=== PATIENT | female | born 1975 | race Caucasian/White ===

== ENCOUNTER 2017-04-06 15:16 | Emergency (ER) | payer OTHER ==
[~2017-04-06] VITALS: Ht 152.4 cm; Wt 68.0 kg
[~2017-04-06 15:16] MED LIST: ACETAMINOPHEN-1 EAC2 PO; AMITRIPTYLINE H50 M2 PO; ASPIR 8181 M1; BENTYL 20 MG TA20 M1; BIRTH CONTROL; CIPROFLOXACIN500 M1 PO; COLACE100 MG PO; HYDROCODON-ACE1 EA11; HYDROCODONE-AP1 EAC6 PO; KLONOPIN1 MG PO; MELATONIN3 MG PO; MELATONIN5 M1 PO; NAPROSYN500 MG PO; NORCO 10-325 T1 EACH PO; NORCO 5-325 TA1 EACH PO; ONDANSETRON HCL4 M2 PO; OXYCODONE HCL 55 MG PO; PERCOCET 5-3251 EACH PO; PERCOCET 7.5-51 EACH PO; PERCOCET PO; PHENERGAN 25 MG25 M1; PHENERGAN 25 MG25 M1 PO; PREDNISONE 20 M20 MG PO; PROTONIX 20 MG20 M1 PO; PROZAC20 MG; PROZAC40 MG PO; SENOKOT-S1 TA2 PO; VALIUM10 MG; VANCOMYCIN HCL250 MG; VISTARIL 25 MG25 M1 PO; [UNRECOGNIZED DRUG - OTHER]
[2017-04-06] MEDS ORDERED: LIALDA1.2 GM PO (15:36)
[2017-04-06] MEDS ORDERED: NEURONTIN 400400 M1 PO (15:37)
[2017-04-06] MEDS ORDERED: CYMBALTA60 MG PO (15:39)
[2017-04-06] MEDS ORDERED: NICOTINE TRANSD14 M1 TRANSDERM (15:40)
[2017-04-06 15:53] LABS: URINE BILIRUBIN NEGATIVE (Negative); URINE BLOOD NEGATIVE (Negative); URINE COLOR YELLOW; URINE GLUCOSE-RANDOM* NEGATIVE (Negative); URINE KETONES NEGATIVE (Negative); URINE NITRITE NEGATIVE (Negative); URINE PROTEIN (DIPSTICK) NEGATIVE (Negative); URINE SPECIFIC GRAVITY 1.015 (1.003-1.035); URINE UROBILINOGEN 0.2 E.U./dl (0.2-1.0)
[2017-04-06 15:56] LABS: ABSOLUTE NEUTROPHILS 2.9 thou/uL (1.4-8.2); BASOPHILS 0.8 % (0.0-2.0); EOSINOPHILS 1.8 % (0.0-3.0); HEMATOCRIT 34.4 % (37.0-47.0); HEMOGLOBIN 11.6 gm/dL (12.0-15.0); LYMPHOCYTES 42.8 % (24.0-44.0); MCH 27.3 pg (26.0-34.0); MCHC 33.5 g/dL (28.0-37.0); MCV 81.4 fL (80.0-100.0); MONOCYTES 6.7 % (1.0-8.0); PLATELET COUNT 207 thou/uL (150-400); POLYS 47.9 % (36.0-66.0); RBC 4.23 mil/uL (4.20-5.00); RDW 14.8 % (10.5-14.5); WBC 6.1 thou/uL (4.0-11.0)
[2017-04-06 15:57] LABS: MANUAL DIFF NO
[2017-04-06 16:08] LABS: CALCIUM 8.5 mg/dL (8.5-10.1); CREATININE 0.7 mg/dL (0.6-1.0); POTASSIUM 3.9 mmol/L (3.5-5.1)
[2017-04-06 16:13] LABS: ALBUMIN 3.7 g/dL (3.4-5.0); TOTAL BILIRUBIN 0.3 mg/dL (<0.1-1.0); TOTAL PROTEIN 6.9 g/dL (6.4-8.2)
[2017-04-06] MEDS ORDERED: NEURONTIN 300300 M1 PO (16:16)
[2017-04-06] MEDS ORDERED: HYDROXYZINE HCL50 MG PO (16:17)
[2017-04-06] MEDS ORDERED: VENLAFAXIN75 MG/1 T1 PO (16:17)
[2017-04-06] MEDS ORDERED: VALIUM5 MG PO (16:18)
[2017-04-06] MEDS ORDERED: HYDROCODONE-AP1 EAC6 PO (16:58)
[2017-04-06] MEDS ORDERED: PROMS25 WY RECTAL (16:58)
[2017-04-06] MEDS ORDERED: ONDANSETRON HCL4 M2 PO (23:14)
== END 2017-04-06 19:22 | disposition home or self-care (01) ==
LOC: ER 15:16
PROVIDERS: Nurse Practitioner Family
DX: K50.90 Crohn's disease, unspecified, without complications (principal); F17.210 Nicotine dependence, cigarettes, uncomplicated; Z90.89 Acquired absence of other organs; Z90.710 Acquired absence of both cervix and uterus; Z90.49 Acquired absence of other specified parts of digestive tract; Z88.1 Allergy status to other antibiotic agents; Z88.0 Allergy status to penicillin

== ENCOUNTER 2017-04-06 18:08 | Inpatient (IN) | payer OTHER ==
[~2017-04-06] VITALS: Ht 152.4 cm; Wt 69.2 kg
--- NOTE | ~2017-04-06 | EKG ---
[address] [address] ELECTROCARDIOGRAM REPORT Name: LUZ ARAMBULA Room #: 438-P ADM IN M.R.#: [id number] Admission: 04/06/17 Attend Phys: Arelis Wood MD Discharge: Date of : 79 Report #: [id number] THIS REPORT FOR: //name// [facility] ED Test Date: 2017-04-06 Test Time: 18:41:07 Pat Name: LUZ ARAMBULA Department: Room: [facility] Gender: F Dolly Driver: DMITRI : 1975 Requested By: Rachel Warner Order Number: [id number] MD: Mata Wooten Measurements Intervals [place] Rate: 94 P: 75 PA: 157 QRS: 15 QRSD: 96 T: 70 QT: 371 QTc: 464 Interpretive Statements Sinus rhythm RSR' in V1 or V2, right VCD or RVH Compared to ECG 09/30/2014 09:03:06 Right ventricular hypertrophy now present RSR' in V1 or V2 now present Prolonged QT interval no longer present Electronically Signed On 04-10-2017 8:20:29 CDT by Mata Wooten [email or web address] <ELECTRONICALLY SIGNED> By: Mata Wooten MD 04/10/17 0820 184 184 Mata Wooten MD /EPI
--- NOTE | ~2017-04-06 | D ---
[facility] [place] [address] DISCHARGE SUMMARY Name: LUZ ARAMBULA Room #: 438-P [facility] IN M.R.#: [id number] Admission: 04/06/17 Attend Phys: Arelis Wood MD Discharge: 04/11/17 Date of : 79 Report #: [id number] THIS REPORT FOR: //name// CC: [facility] physician/PCP Arelis Wood DISCHARGE DIAGNOSES: 1. Abdominal pain, suspect chronic pain issues, doubt Crohn's exacerbation. 2. Reported history of Crohn's. 3. Anxiety. 4. Tobacco abuse. CONSULTS: GI. PROCEDURES: None. HOSPITAL COURSE: The patient is a 41-year-old female with a reported history of Crohn's disorder followed by Dr. Booker at [place] presented to the ER secondary to abdominal pain. Please see details of admission dictated by Safia Bartlett on April 06. The patient indicates that she had extensive evaluation at [place] in addition to colonoscopy on March 13. She was started on Lialda, did a month of steroids. She also had an EGD that showed gastritis. She had MRCP that was negative. She came into the ER reporting abdominal pain. She was initially treated for Crohn's exacerbation and GI were consulted. She stays on antiemetics, pain control, IV steroids. After several days of IV steroids, she indicates the pain was not any better. She had a CAT scan that was negative for anything acute. ESR, CRP were negative. UA was negative. Her white count was normal. She never had any fevers. She never had any evidence of nausea, vomiting, bloody stools. It is suspected that there is some concern for drug seeking behavior. Nurses indicate that she would watch the clock and request her meds every 2 hours. She also requested increasing her meds with me. On discharge, she is tolerating diet. Nurses report no other problems. I recommended that she follow up with GI doctor at [place] for any additional management care. DISCHARGE DISPOSITION: To home. DISCHARGE PHYSICAL EXAMINATION: VITAL SIGNS: Temperature 97, pulse 78, blood pressure 132/82, O2 sat 98% on room air. GENERAL: She is awake, alert, answering questions appropriately in no acute respiratory distress. HEENT: Normocephalic, atraumatic. Pupils equal. NECK: Supple. CARDIOVASCULAR: Regular rate and rhythm. No murmurs. LUNGS: Clear to auscultation bilaterally. No crackles or wheeze. ABDOMEN: Soft, no distention or tenderness. [facility] [address] [place] [address] DISCHARGE SUMMARY Name: LUZ ARAMBULA Room #: 438-P [facility]#: [id number] Admission: 04/06/17 Attend Phys: Arelis Wood MD Discharge: 04/11/17 Date of : 79 Report #: [id number] EXTREMITIES: No edema. NEUROLOGIC: Nonfocal. DISCHARGE MEDICATIONS: She will resume all of her previous meds including Phenergan p.r.n., Lialda 1.2 grams 4 tablets daily, Cymbalta 60 daily, Nicoderm patch, gabapentin 300 q.i.d., hydroxyzine p.r.n., Effexor 75 daily, Valium p.r.n., Zofran p.r.n., 20 daily, prednisone taper. CBC and CMP in 1 week. DISCHARGE INSTRUCTIONS: Follow up with primary care in 1 week. Follow up with GI in 1 week and to seek immediate medical attention if symptoms worsen or recur or if she has any significant medical concerns. Discharge planning took 45 minutes. By: 1204 [id number] Cheyenne Wood MD /nt
--- NOTE | ~2017-04-06 | H ---
[facility] [place] [address] HISTORY AND PHYSICAL Name: LUZ ARAMBULA Room #: 438-P [facility] IN M.R.#: [id number] Admission: 04/06/17 Attend Phys: Arelis Wood MD Discharge: 04/11/17 Date of : 79 Report #: [id number] THIS REPORT FOR: //name// CC: [facility] physician/PCP Arelis Wood DATE OF SERVICE: 04/06/2017 ATTENDING PHYSICIAN: Dr. Doyle. PRIMARY CARE PHYSICIAN: None. CHIEF COMPLAINT: Abdominal pain and diarrhea. HISTORY OF PRESENT ILLNESS: The patient is a 41-year-old female who states that for the last year, she has been having severe right upper quadrant abdominal pain associated with episodes of nausea, vomiting and diarrhea. She has also had hematochezia multiple times. She has had an extensive evaluation with GI physician, Dr. Booker at [place]. She has undergone colonoscopy in 02/2017 which she says did show that she had Crohn's disease. She has since been started on Lialda and she did a month of oral steroids. She has also undergone an EGD with report showing gastritis. She states the biopsies are pending. She has also had an MRCP, which was negative. She initially came into the ER complaining of severe right upper quadrant abdominal pain. She said this was very typical for where her Crohn's flares have been. She is not convinced that her symptoms are completely due to Crohn's disease and she would like to see another GI physician to see if there is any other tests that can be done to find out why she is having so much pain. Her pain stays mostly on the right side, but does radiate at times up into her entire right side of her chest and right shoulder area. Her pain is not always related to eating or drinking. She has not been having any fevers. She did receive some pain medications in the ER, but says it really is not working. PAST MEDICAL HISTORY: Crohn's disease, anxiety. PAST SURGICAL HISTORY: Cholecystectomy, hysterectomy, appendectomy, oophorectomy, tonsillectomy and adenoidectomy, ear tubes as a child and bilateral tubal ligation. ALLERGIES: CEPHALOSPORINS, PENICILLIN, both cause rashes; REGLAN causes anxiety and jitteriness and TORADOL causes anxiety. HOME MEDICATIONS: Phenergan 25 mg p.o. or rectal q.4 hours p.r.n., nicotine patch 14 mg transdermal daily, Neurontin 300 mg p.o. q.i.d., Cymbalta 60 mg p.o. daily, Effexor 75 mg p.o. daily, diazepam 5 mg p.o. q.i.d. and hydroxyzine 50 mg p.o. q. 4 hours p.r.n. and Lialda 1.2 g which she takes 4 tabs p.o. daily. [address] [address] HISTORY AND PHYSICAL Name: LUZ ARAMBULA Room #: 438-P [facility] IN M.R.#: [id number] Admission: 04/06/17 Attend Phys: Arelis Wood MD Discharge: 04/11/17 Date of : 79 Report #: [id number] SOCIAL HISTORY: The patient smokes about 5 cigarettes per day. She has been smoking more than that for up to 20 years. She denies any alcohol or drug use. She currently lives with her mother. FAMILY HISTORY: Significant for leukemia. Her father in his sleep at the age of 65. She says they really do not know exactly what happened and mother is alive and healthy and she also has a grandmother who is 97 years old and healthy. REVIEW OF SYSTEMS: Twelve point review of systems was reviewed with the patient, otherwise negative unless stated in the HPI. PHYSICAL EXAMINATION: GENERAL: The patient is an alert female in no acute distress. VITAL SIGNS: Temperature is 36.4, heart rate 98, respirations 18, blood pressure is 121/75, oxygen is 95% on room air. HEENT: PERRLA. Sclerae are nonicteric. Her eyes appear kind of sunken. Oral mucosa is pink and dry. NECK: Supple, no JVD noted. CARDIOVASCULAR: Normal S1, S2. No murmurs, rubs or gallops. RESPIRATORY: Breath sounds are clear bilaterally. No wheezing or rhonchi. ABDOMEN: Nondistended. She does have severe right upper quadrant abdominal pain even to light palpitation. Bowel sounds are positive. VASCULAR: Pedal pulses are 2+ and no edema noted. NEUROLOGIC: The patient is alert and oriented x 3. Speech is clear. She is moving all extremities equally. No focal neuro deficits noted. LABORATORY DATA AND DIAGNOSTICS: WBC is 6.1, hemoglobin 11.6, platelets 207. Sodium 138, potassium 3.9, BUN 9, creatinine 0.7, glucose 98. LFTs are within normal limits. Lipase is 362. UA is negative. Chest x-ray is negative. Ultrasound of the abdomen showed an ectatic common bile duct, this might be normal post cholecystectomy that should be correlated with labs and presentation. ASSESSMENT AND PLAN: 1. Abdominal pain. This is likely due to Crohn's which was a recent diagnosis. She has had extensive gastrointestinal workup done outpatient. She is requesting to see another gastrointestinal physician. We will defer starting any IV steroids to Gastroenterology. Continue with Lialda and IV fluids and pain control. 2. Anxiety, this is stable, continue home medications. 3. Tobacco abuse. The patient has been advised to quit. 4. Deep venous thrombosis prophylaxis, place sequential compression devices. [facility] [address] [place] [address] HISTORY AND PHYSICAL Name: RALFLUZ Darien Room #: 438-P [facility] IN ..#: [id number] Admission: 04/06/17 Attend Phys: Arelis Wood MD Discharge: 04/11/17 Date of : 79 Report #: [id number] We will continue to follow the patient closely throughout the hospitalization and make changes based on clinical status. <ELECTRONICALLY SIGNED> By: LACEY Chin 04/13/17 0109 0556 0725 LACEY Chin /nt
[~2017-04-06 18:08] MED LIST changes: +CYMBALTA60 MG PO; +HYDROXYZINE HCL50 MG PO; +LIALDA1.2 GM PO; +NEURONTIN 300300 M1 PO; +NEURONTIN 400400 M1 PO; +NICOTINE TRANSD14 M1 TRANSDERM; +PROMS25 WY RECTAL; +VALIUM5 MG PO; +VENLAFAXIN75 MG/1 T1 PO
[2017-04-06 18:10] VITALS: BP 121/75
[2017-04-06 20:24] VITALS: BP 113/66
[2017-04-06 22:13] VITALS: BP 115/81
[2017-04-06] MEDS ORDERED: ONDANSETRON HCL4 M2 PO (23:14)
[2017-04-07 04:19] VITALS: BP 122/76
[2017-04-07 08:00] VITALS: BP 120/83
[2017-04-07 15:47] VITALS: BP 113/78
[2017-04-07 19:49] VITALS: BP 118/86
[2017-04-08 04:17] VITALS: BP 127/80
[2017-04-08 08:00] VITALS: BP 108/59; BP 110/65
[2017-04-08 15:28] VITALS: BP 121/65
[2017-04-08 20:22] VITALS: BP 117/68
[2017-04-09 04:03] VITALS: BP 139/85
[2017-04-09 06:10] LABS: ALBUMIN 3.8 g/dL (3.4-5.0); CALCIUM 8.5 mg/dL (8.5-10.1); CREATININE 0.8 mg/dL (0.6-1.0); POTASSIUM 4.2 mmol/L (3.5-5.1); TOTAL BILIRUBIN 0.2 mg/dL (<0.1-1.0)
[2017-04-09 08:00] VITALS: BP 118/60
[2017-04-09 16:00] VITALS: BP 111/69
[2017-04-09 19:05] VITALS: BP 130/83
[2017-04-10 06:10] LABS: HEMATOCRIT 32.7 % (37.0-47.0); MCH 27.7 pg (26.0-34.0); MCHC 33.7 g/dL (28.0-37.0); MCV 82.3 fL (80.0-100.0); RBC 3.97 mil/uL (4.20-5.00); RDW 15.3 % (10.5-14.5); WBC 9.4 thou/uL (4.0-11.0)
[2017-04-10 06:25] LABS: ALBUMIN 3.4 g/dL (3.4-5.0); CALCIUM 8.3 mg/dL (8.5-10.1); CREATININE 0.9 mg/dL (0.6-1.0); TOTAL BILIRUBIN 0.2 mg/dL (<0.1-1.0); TOTAL PROTEIN 6.3 g/dL (6.4-8.2)
[2017-04-10 08:00] VITALS: BP 128/83
[2017-04-10 14:00] LABS: URINE BILIRUBIN NEGATIVE (Negative); URINE BLOOD NEGATIVE (Negative); URINE COLOR YELLOW; URINE GLUCOSE-RANDOM* NEGATIVE (Negative); URINE KETONES NEGATIVE (Negative); URINE LEUKOCYTES-REFLEX NEGATIVE (Negative); URINE PROTEIN (DIPSTICK) NEGATIVE (Negative); URINE SPECIFIC GRAVITY <= 1.005 (1.003-1.035); URINE UROBILINOGEN 0.2 E.U./dl (0.2-1.0)
[2017-04-10 16:00] VITALS: BP 132/86
[2017-04-10 20:05] VITALS: BP 124/74
[2017-04-11 04:25] VITALS: BP 149/95
[2017-04-11 07:16] LABS: HEMATOCRIT 35.8 % (37.0-47.0); HEMOGLOBIN 11.8 gm/dL (12.0-15.0); MCH 27.3 pg (26.0-34.0); MCHC 32.8 g/dL (28.0-37.0); MCV 83.3 fL (80.0-100.0); RBC 4.3 mil/uL (4.20-5.00); RDW 15.4 % (10.5-14.5); WBC 11.8 thou/uL (4.0-11.0)
[2017-04-11 07:43] LABS: ALBUMIN 3.4 g/dL (3.4-5.0); CALCIUM 8.2 mg/dL (8.5-10.1); CREATININE 0.9 mg/dL (0.6-1.0); POTASSIUM 3.4 mmol/L (3.5-5.1); TOTAL BILIRUBIN 0.2 mg/dL (<0.1-1.0); TOTAL PROTEIN 6.4 g/dL (6.4-8.2)
[2017-04-11 08:00] VITALS: BP 132/82
[2017-04-11] MEDS ORDERED: PREDNISONE 10 M10 MG PO (10:37)
[2017-04-11 11:16] VITALS: BP 132/82
== END 2017-04-11 12:48 | disposition home or self-care (01) | DRG 387 ==
LOC: ER 18:08 → EROBS 19:17 → 4S 19:17
PROVIDERS: Family Medicine; Hospitalist
DX: K50.90 Crohn's disease, unspecified, without complications (principal); K29.70 Gastritis, unspecified, without bleeding; F17.210 Nicotine dependence, cigarettes, uncomplicated; F43.10 Post-traumatic stress disorder, unspecified; F41.9 Anxiety disorder, unspecified; Z90.49 Acquired absence of other specified parts of digestive tract; Z90.721 Acquired absence of ovaries, unilateral; Z88.0 Allergy status to penicillin; Z90.710 Acquired absence of both cervix and uterus; Z88.8 Allergy status to other drugs, medicaments and biological substances; Z80.6 Family history of leukemia; Z88.6 Allergy status to analgesic agent; Z79.899 Other long term (current) drug therapy
CPT/HCPCS: 10195

== ENCOUNTER 2017-07-03 13:27 | Emergency (ER) | payer OTHER ==
[~2017-07-03] VITALS: Ht 152.4 cm; Wt 67.6 kg
[~2017-07-03 13:27] MED LIST changes: +CLONAZEPAM 1 MG1 M1 PO; +PREDNISONE 10 M10 MG PO; +TRAMADOL 50 MG50 MG PO; +TRAZODONE HCL100 MG PO
[2017-07-03 14:01] LABS: ABSOLUTE NEUTROPHILS 3.2 thou/uL (1.4-8.2); BASOPHILS 0.7 % (0.0-2.0); EOSINOPHILS 0.6 % (0.0-3.0); HEMATOCRIT 41.1 % (37.0-47.0); HEMOGLOBIN 13.7 gm/dL (12.0-15.0); LYMPHOCYTES 37.1 % (24.0-44.0); MCH 26.9 pg (26.0-34.0); MCHC 33.4 g/dL (28.0-37.0); MCV 80.6 fL (80.0-100.0); MONOCYTES 5.5 % (1.0-8.0); PLATELET COUNT 223 thou/uL (150-400); POLYS 56.1 % (36.0-66.0); RDW 14.2 % (10.5-14.5); WBC 5.8 thou/uL (4.0-11.0)
[2017-07-03 14:03] LABS: MANUAL DIFF NO
[2017-07-03 14:07] LABS: CALCIUM 9.4 mg/dL (8.5-10.1); CREATININE 1.2 mg/dL (0.6-1.0); POTASSIUM 4.3 mmol/L (3.5-5.1)
[2017-07-03 14:14] LABS: ALBUMIN 4.4 g/dL (3.4-5.0); DIRECT BILIRUBIN 0.1 mg/dL (<0.1-0.3); TOTAL BILIRUBIN 0.5 mg/dL (<0.1-1.0); TOTAL PROTEIN 8.1 g/dL (6.4-8.2)
[2017-07-03] MEDS ORDERED: CYMBALTA60 MG PO (14:17)
[2017-07-03] MEDS ORDERED: PHENERGAN 25 MG25 M1 PO (14:40)
[2017-07-03] MEDS ORDERED: ZOFRAN ODT4 MG PO (14:40)
[2017-07-03] MEDS ORDERED: NORCO 5-325 TA1 EACH PO (15:31)
== END 2017-07-03 15:59 | disposition home or self-care (01) ==
LOC: ER 13:27
PROVIDERS: Emergency Medicine
DX: R10.9 Unspecified abdominal pain (principal); R11.2 Nausea with vomiting, unspecified; R94.5 Abnormal results of liver function studies; S20.221A Contusion of right back wall of thorax, initial encounter; K50.90 Crohn's disease, unspecified, without complications; Z90.49 Acquired absence of other specified parts of digestive tract; Z90.710 Acquired absence of both cervix and uterus; Z90.89 Acquired absence of other organs; Z86.14 Personal history of Methicillin resistant Staphylococcus aureus infection; W18.39XA Other fall on same level, initial encounter; Y93.89 Activity, other specified; Y92.89 Other specified places as the place of occurrence of the external cause; Y99.8 Other external cause status

== ENCOUNTER 2017-07-10 23:38 | Emergency (ER) | payer OTHER ==
[~2017-07-10] VITALS: Ht 152.4 cm; Wt 63.5 kg
[~2017-07-10 23:38] MED LIST changes: +ZOFRAN ODT4 MG PO
[2017-07-11] MEDS ORDERED: CARAFATE1 GM/10 ML PO (00:22)
[2017-07-11] MEDS ORDERED: PROTONIX40 M1 PO (00:23)
[2017-07-11] MEDS ORDERED: SUMATRIPTAN SU100 MG PO (00:23)
[2017-07-11 01:05] LABS: ICTOTEST (BILI CONFIRMATORY) Negative (Negative); URINE BILIRUBIN NEGATIVE (Negative); URINE BLOOD NEGATIVE (Negative); URINE COLOR YELLOW; URINE GLUCOSE-RANDOM* NEGATIVE (Negative); URINE KETONES NEGATIVE (Negative); URINE LEUKOCYTES-REFLEX NEGATIVE (Negative); URINE PROTEIN (DIPSTICK) TRACE (Negative); URINE SPECIFIC GRAVITY > 1.030 (1.003-1.035)
[2017-07-11] MEDS ORDERED: NORCO 5-325 TA1 EACH PO (03:12)
[2017-07-11] MEDS ORDERED: NAPROSYN500 MG PO (03:12)
== END 2017-07-11 03:14 | disposition home or self-care (01) ==
LOC: ER 23:38
PROVIDERS: Emergency Medicine
DX: S00.83XA Contusion of other part of head, initial encounter (principal); S20.211A Contusion of right front wall of thorax, initial encounter; S09.90XA Unspecified injury of head, initial encounter; Y04.2XXA Assault by strike against or bumped into by another person, initial encounter; Y93.89 Activity, other specified; Y92.89 Other specified places as the place of occurrence of the external cause; Y99.8 Other external cause status; F17.210 Nicotine dependence, cigarettes, uncomplicated; Z88.1 Allergy status to other antibiotic agents; Z88.0 Allergy status to penicillin; Z88.6 Allergy status to analgesic agent; Z90.710 Acquired absence of both cervix and uterus; Z90.49 Acquired absence of other specified parts of digestive tract; Z98.890 Other specified postprocedural states

== ENCOUNTER 2017-07-18 21:45 | Emergency (ER) | payer OTHER ==
[~2017-07-18] VITALS: Ht 152.4 cm; Wt 67.6 kg
--- NOTE | ~2017-07-18 | EKG ---
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 08/828 06 06 Oleg Boone MD, [facility] /EPI
[~2017-07-18 21:45] MED LIST changes: +CARAFATE1 GM/10 ML PO; +PROTONIX40 M1 PO; +SUMATRIPTAN SU100 MG PO
[2017-07-18] MEDS ORDERED: NORFLEX100 MG PO (23:18)
[2017-07-18] MEDS ORDERED: NORCO 5-325 TA1 EACH PO (23:18)
[2017-07-18 23:21] LABS: AMP/METHAMP Negative (Negative); BARBITURATES Negative (Negative); BENZODIAZEPINES POSITIVE (Negative); COCAINE Negative (Negative); METHADONE Negative (Negative); OPIATES POSITIVE (Negative); PCP Negative (Negative); THC Negative (Negative)
== END 2017-07-18 23:31 | disposition home or self-care (01) ==
LOC: ER 21:45
PROVIDERS: Emergency Medicine
DX: S46.911A Strain of unspecified muscle, fascia and tendon at shoulder and upper arm level, right arm, initial encounter (principal); K50.90 Crohn's disease, unspecified, without complications; F17.210 Nicotine dependence, cigarettes, uncomplicated; Z90.49 Acquired absence of other specified parts of digestive tract; Z90.710 Acquired absence of both cervix and uterus; Z90.89 Acquired absence of other organs; Z86.14 Personal history of Methicillin resistant Staphylococcus aureus infection; Z88.1 Allergy status to other antibiotic agents; Z88.0 Allergy status to penicillin; Z88.6 Allergy status to analgesic agent; Z88.8 Allergy status to other drugs, medicaments and biological substances; Y08.89XA Assault by other specified means, initial encounter; Y93.89 Activity, other specified; Y92.481 Parking lot as the place of occurrence of the external cause; Y99.8 Other external cause status

== ENCOUNTER 2017-08-15 16:06 | Emergency (ER) | payer OTHER ==
[~2017-08-15] VITALS: Ht 152.4 cm; Wt 61.2 kg
[~2017-08-15 16:06] MED LIST changes: +NORFLEX100 MG PO
[2017-08-15] MEDS ORDERED: IMURAN 50MG TAB50 M1 PO (17:39)
[2017-08-15 17:43] LABS: ABSOLUTE NEUTROPHILS 3.9 thou/uL (1.4-8.2); BASOPHILS 0.6 % (0.0-2.0); EOSINOPHILS 0.5 % (0.0-3.0); HEMATOCRIT 37.3 % (37.0-47.0); HEMOGLOBIN 12.1 gm/dL (12.0-15.0); LYMPHOCYTES 34.5 % (24.0-44.0); MCH 26.3 pg (26.0-34.0); MCHC 32.6 g/dL (28.0-37.0); MCV 80.9 fL (80.0-100.0); MONOCYTES 7.8 % (1.0-8.0); PLATELET COUNT 188 thou/uL (150-400); POLYS 56.6 % (36.0-66.0); RBC 4.61 mil/uL (4.20-5.00); RDW 14.7 % (10.5-14.5)
[2017-08-15 17:53] LABS: CALCIUM 8.8 mg/dL (8.5-10.1); CREATININE 0.7 mg/dL (0.6-1.0); POTASSIUM 3.6 mmol/L (3.5-5.1)
[2017-08-15 17:59] LABS: TOTAL BILIRUBIN 0.4 mg/dL (<0.1-1.0); TOTAL PROTEIN 6.9 g/dL (6.4-8.2)
[2017-08-15 18:00] LABS: MANUAL DIFF NO
[2017-08-15 18:44] LABS: URINE BILIRUBIN NEGATIVE (Negative); URINE BLOOD NEGATIVE (Negative); URINE COLOR YELLOW; URINE GLUCOSE-RANDOM* NEGATIVE (Negative); URINE KETONES NEGATIVE (Negative); URINE NITRITE NEGATIVE (Negative); URINE PROTEIN (DIPSTICK) NEGATIVE (Negative); URINE SPECIFIC GRAVITY <= 1.005 (1.003-1.035); URINE UROBILINOGEN 0.2 E.U./dl (0.2-1.0)
[2017-08-15] MEDS ORDERED: ZOFRAN ODT4 M1 PO (19:04)
[2017-08-15] MEDS ORDERED: MACROBID 100 M100 M1 PO (19:04)
== END 2017-08-15 19:41 | disposition home or self-care (01) ==
LOC: ER 16:06
PROVIDERS: Physician Assistant
DX: N30.90 Cystitis, unspecified without hematuria (principal); R11.2 Nausea with vomiting, unspecified; F17.210 Nicotine dependence, cigarettes, uncomplicated; Z90.710 Acquired absence of both cervix and uterus; Z88.0 Allergy status to penicillin; Z88.1 Allergy status to other antibiotic agents; Z88.6 Allergy status to analgesic agent; Z88.8 Allergy status to other drugs, medicaments and biological substances

== ENCOUNTER 2017-09-07 23:56 | Emergency (ER) | payer OTHER ==
[~2017-09-07] VITALS: Ht 152.4 cm; Wt 56.7 kg
[~2017-09-07 23:56] MED LIST changes: +IMURAN 50MG TAB50 M1 PO; +MACROBID 100 M100 M1 PO; +ZOFRAN ODT4 M1 PO
[2017-09-08 00:39] LABS: HEMATOCRIT 35.9 % (37.0-47.0); HEMOGLOBIN 12.1 gm/dL (12.0-15.0); MCH 27.2 pg (26.0-34.0); MCHC 33.7 g/dL (28.0-37.0); MCV 80.8 fL (80.0-100.0); RBC 4.44 mil/uL (4.20-5.00); RDW 14.7 % (10.5-14.5); WBC 7.8 thou/uL (4.0-11.0)
[2017-09-08 00:53] LABS: ALBUMIN 4.2 g/dL (3.4-5.0); CALCIUM 9.4 mg/dL (8.5-10.1); TOTAL BILIRUBIN 0.5 mg/dL (<0.1-1.0); TOTAL PROTEIN 7.4 g/dL (6.4-8.2)
[2017-09-08 01:01] LABS: CREATININE 0.9 mg/dL (0.6-1.0)
[2017-09-08] MEDS ORDERED: PHENERGAN 25 MG25 M1 PO (01:11)
[2017-09-08] MEDS ORDERED: OXYCODONE HCL 55 MG PO (01:11)
== END 2017-09-08 01:50 | disposition home or self-care (01) ==
LOC: ER 23:56
PROVIDERS: Emergency Medicine
DX: R10.31 Right lower quadrant pain (principal); R11.2 Nausea with vomiting, unspecified; F17.210 Nicotine dependence, cigarettes, uncomplicated; K50.90 Crohn's disease, unspecified, without complications; Z90.710 Acquired absence of both cervix and uterus; Z98.890 Other specified postprocedural states; Z88.1 Allergy status to other antibiotic agents; Z88.0 Allergy status to penicillin; Z88.5 Allergy status to narcotic agent

== ENCOUNTER 2017-09-26 07:46 | Emergency (ER) | payer OTHER ==
[~2017-09-26] VITALS: Ht 152.4 cm; Wt 59.0 kg
[2017-09-26] MEDS ORDERED: CLONAZEPAM 1 MG1 M1 PO (08:07)
[2017-09-26 08:36] LABS: URINE BILIRUBIN NEGATIVE (Negative); URINE BLOOD NEGATIVE (Negative); URINE COLOR YELLOW; URINE GLUCOSE-RANDOM* NEGATIVE (Negative); URINE KETONES NEGATIVE (Negative); URINE LEUKOCYTES-REFLEX NEGATIVE (Negative); URINE PROTEIN (DIPSTICK) NEGATIVE (Negative); URINE UROBILINOGEN 0.2 E.U./dl (0.2-1.0)
[2017-09-26 08:51] LABS: ABSOLUTE NEUTROPHILS 5.7 thou/uL (1.4-8.2); EOSINOPHILS 1.6 % (0.0-3.0); HEMATOCRIT 39.6 % (37.0-47.0); HEMOGLOBIN 13.1 gm/dL (12.0-15.0); LYMPHOCYTES 28.4 % (24.0-44.0); MANUAL DIFF NO; MCH 26.7 pg (26.0-34.0); MCHC 33.1 g/dL (28.0-37.0); MCV 80.7 fL (80.0-100.0); MONOCYTES 4.9 % (1.0-8.0); PLATELET COUNT 286 thou/uL (150-400); POLYS 64.1 % (36.0-66.0); RBC 4.91 mil/uL (4.20-5.00); RDW 15.6 % (10.5-14.5); WBC 8.8 thou/uL (4.0-11.0)
[2017-09-26 08:59] LABS: ANION GAP 10 mmol/L (7-16); BUN 9 mg/dL (7-18); CALCIUM 9.6 mg/dL (8.5-10.1); CHLORIDE 103 mmol/L (98-107); CO2 24 mmol/L (21-32); CREATININE 0.7 mg/dL (0.6-1.0); GLUCOSE 114 mg/dL (74-106); SODIUM 137 mmol/L (136-145)
[2017-09-26 09:05] LABS: ALBUMIN 4.1 g/dL (3.4-5.0); ALKALINE PHOSPHATASE 99 U/L (46-116); DIRECT BILIRUBIN < 0.1 mg/dL (<0.1-0.3); SGOT 16 U/L (15-37); SGPT 16 U/L (30-65); TOTAL BILIRUBIN 0.2 mg/dL (<0.1-1.0); TOTAL PROTEIN 7.5 g/dL (6.4-8.2)
[2017-09-26] MEDS ORDERED: PROMS25 WY RECTAL (11:19)
[2017-09-26] MEDS ORDERED: OXYCODONE HCL5 MG PO (11:19)
[2017-09-26] MEDS ORDERED: ENTOCORT EC 3 MG3 MG PO (11:19)
== END 2017-09-26 11:37 | disposition home or self-care (01) ==
LOC: ER 07:46
PROVIDERS: Emergency Medicine
DX: R10.9 Unspecified abdominal pain (principal); F17.210 Nicotine dependence, cigarettes, uncomplicated; Z90.49 Acquired absence of other specified parts of digestive tract; Z90.710 Acquired absence of both cervix and uterus; Z98.890 Other specified postprocedural states; Z88.0 Allergy status to penicillin; Z88.1 Allergy status to other antibiotic agents; Z88.6 Allergy status to analgesic agent; Z88.5 Allergy status to narcotic agent

== ENCOUNTER 2017-11-18 03:36 | Inpatient (IN) | payer OTHER ==
[~2017-11-18] VITALS: Ht 152.4 cm; Wt 61.2 kg
--- NOTE | ~2017-11-18 | HC ---
[facility] [place] [address] CONSULTATION Name: LUZ CARROLL Room #: 427-P ADM IN M.R.#: [id number] Admission: 11/18/17 Attend Phys: Zach Ochoa Discharge: Date of : 79 Report #: [id number] THIS REPORT FOR: //name// CC: Dr. Alvin MILLS unknown Zach BOOKER MD DATE OF SERVICE: 11/18/2017 HISTORY OF PRESENT ILLNESS: The patient is a 42-year-old female with right upper quadrant abdominal pain. She was evaluated in the Emergency Room on 11/17/2017. The patient has a history, she states, of Crohn's and ulcerative colitis; however, in further discussion, I suspect this is Crohn disease as she states there was inflammation of the small bowel. She is followed by a different oil well service operator helper. She underwent her second Remicade infusion on Monday of last week. She states her symptoms began just after the Remicade infusion, which was a headache, fatigue, diarrhea, nausea and vomiting. Her right upper quadrant abdominal pain is intermittent and it wraps around into her back. She has had a previous cholecystectomy. She had an intraoperative cholangiogram at that time, was negative. We had seen the patient in consultation in March of this year for abdominal pain and it was documented that the patient had had an MRCP on 04/05/2017 at [facility], which was unremarkable. I had seen the patient back in 2013 for elevated liver function test and full liver workup at that time was essentially negative. I do not have a copy of these results. At the time recommended repeating liver function tests and consider biopsy; however, she did not follow up with our office. She denies any blood in her stools. She denies any chest pain or shortness of breath currently. No fevers or chills at this time. A CT scan of the abdomen and pelvis was performed on admission, which showed mild intrahepatic and common bile duct prominence, likely post-cholecystectomy related change, unchanged from prior studies. Pancreas appeared normal. No hepatic abnormalities noted. Several fluid filled loops of distal small bowel with mucosal enhancement, which may represent manifestations of mild enteritis or related to the patient's history of inflammatory bowel disease. No free air was noted. No lymphadenopathy. PAST MEDICAL HISTORY: Inflammatory bowel disease, suspect Crohn disease based on the patient stating small bowel was involved in the past. Again, Dr. Booker or different oil well service operator helper follows the patient on a regular basis. History of elevated liver function tests, previous hysterectomy, appendectomy, cholecystectomy, gastroesophageal reflux disease. REVIEW OF SYSTEMS: As per HPI. ALLERGIES: PREDNISONE, CEPHALOSPORINS, PENICILLINS, TRAMADOL, REGLAN. [address] [address] CONSULTATION Name: LUZ CARROLL Room #: 427-P [facility] IN M.R.#: [id number] Admission: 11/18/17 Attend Phys: Zach Ochoa Discharge: Date of : 79 Report #: [id number] MEDICATIONS ON ADMISSION: Bentyl, Zofran p.r.n., Castaner, Phenergan, Lialda, clonazepam, Carafate and Protonix. Apparently, the patient just started Remicade and had her second dose last Monday. SOCIAL HISTORY: She actively smokes cigarettes. She denies any alcohol use. FAMILY HISTORY: Negative for colon cancer. PHYSICAL EXAMINATION: VITAL SIGNS: Temperature is 98.3, pulse 79, blood pressure is 113/65 and respiratory rate is 18. GENERAL: She is alert and oriented x 3, in no acute distress. HEENT: Sclerae nonicteric. Oropharynx clear. NECK: Supple, without lymphadenopathy. CARDIOVASCULAR: Regular rate and rhythm. CHEST: With faint wheezes bilaterally. ABDOMEN: Soft. She is tender to palpation in the right upper quadrant, nondistended, normoactive bowel sounds. EXTREMITIES: No cyanosis, clubbing or edema. LABORATORY DATA: Sodium 139, potassium 3.7, chloride 103, bicarbonate 29, BUN 6, creatinine 0.8, glucose 108, AST is 456, yesterday was 27; lipase 944, yesterday 119; total bilirubin 0.7, alkaline phosphatase 200, ALT is 384, yesterday was 53. Albumin 4.2. Troponin less than 0.04. Lactic acid level 1.4. WBC 7.2, hemoglobin 12.8, platelet count is 626. ASSESSMENT AND PLAN: Right upper quadrant abdominal pain with elevated liver function tests. The patient has had a previous cholecystectomy in 2013. At that time, intraoperative cholangiogram was normal. She has had an magnetic resonance cholangiopancreatography in March of this year that was negative for choledocholithiasis. Currently, her bilirubin is normal. There was mild prominence of the duct on CT. It is still possible she could have a common bile duct stone or sludge causing elevation of liver function test and possible pancreatitis. Therefore, we will repeat the magnetic resonance cholangiopancreatography today. Need to also consider other etiologies for elevated liver function tests. Therefore, we will proceed with full liver workup including autoimmune markers, ceruloplasmin and iron studies as well as viral markers. The patient just started Remicade within the last few weeks. This can potentially cause an autoimmune hepatitis. We will check an FABIAN as well. She may be having reaction to Remicade that is causing other symptoms as well. We would continue liquids today. Monitor liver function tests and lipase. [facility] [address] [place] [address] CONSULTATION Name: LUZ CARROLL Room #: 427-P ADM IN M.R.#: [id number] Admission: 11/18/17 Attend Phys: Zach Ochoa Discharge: Date of : 79 Report #: [id number] Thank you for allowing me to participate in her care. <ELECTRONICALLY SIGNED> By: Timoteo Antoine MD 11/19/17 1158 1158 1559 Timoteo Antoine MD /nt
[~2017-11-18 03:36] MED LIST changes: +BENTYL 20 MG TA20 M1 PO; +ENTOCORT EC 3 MG3 MG PO; +OXYCODONE HCL5 MG PO
[2017-11-18 03:52] VITALS: BP 122/80
[2017-11-18 03:58] LABS: URINE BILIRUBIN NEGATIVE (Negative); URINE BLOOD NEGATIVE (Negative); URINE CLARITY CLEAR; URINE COLOR YELLOW; URINE GLUCOSE-RANDOM* NEGATIVE (Negative); URINE KETONES NEGATIVE (Negative); URINE LEUKOCYTES NEGATIVE (Negative); URINE NITRITE NEGATIVE (Negative); URINE PROTEIN (DIPSTICK) NEGATIVE (Negative); URINE SPECIFIC GRAVITY <= 1.005 (1.005-1.035); URINE UROBILINOGEN 0.2 E.U./dl (0.2-1.0)
[2017-11-18 04:13] LABS: ABSOLUTE NEUTROPHILS 2.5 thou/uL (1.4-8.2); BASOPHILS 0.8 % (0.0-2.0); EOSINOPHILS 2.9 % (0.0-3.0); HEMATOCRIT 38.3 % (37.0-47.0); HEMOGLOBIN 12.8 gm/dL (12.0-15.0); MCH 26.9 pg (26.0-34.0); MCHC 33.3 g/dL (28.0-37.0); MCV 80.7 fL (80.0-100.0); MONOCYTES 9.5 % (1.0-8.0); PLATELET COUNT 262 thou/uL (150-400); POLYS 34.8 % (36.0-66.0); RBC 4.75 mil/uL (4.20-5.00); RDW 14.8 % (10.5-14.5); WBC 7.2 thou/uL (4.0-11.0)
[2017-11-18 04:20] LABS: CALCIUM 8.6 mg/dL (8.5-10.1); CREATININE 0.8 mg/dL (0.6-1.0); POTASSIUM 3.7 mmol/L (3.5-5.1)
[2017-11-18 04:25] LABS: ALBUMIN 4.2 g/dL (3.4-5.0); DIRECT BILIRUBIN 0.3 mg/dL (<0.1-0.3); TOTAL BILIRUBIN 0.7 mg/dL (<0.1-1.0); TOTAL PROTEIN 7.6 g/dL (6.4-8.2)
[2017-11-18 06:03] VITALS: BP 116/79
[2017-11-18 06:34] VITALS: BP 105/73
[2017-11-18 07:15] VITALS: BP 113/65
[2017-11-18 12:04] LABS: % SATURATION 37 % (20-39); IRON 131 ug/dL (50-170); TIBC 356 ug/dL (250-450)
[2017-11-18 15:48] VITALS: BP 108/69
[2017-11-18 21:00] VITALS: BP 97/60
[2017-11-19 05:20] VITALS: BP 106/73
[2017-11-19 06:03] LABS: ABSOLUTE NEUTROPHILS 5.4 thou/uL (1.4-8.2); BASOPHILS 0.3 % (0.0-2.0); EOSINOPHILS 0.1 % (0.0-3.0); HEMATOCRIT 32.4 % (37.0-47.0); HEMOGLOBIN 10.9 gm/dL (12.0-15.0); LYMPHOCYTES 28.4 % (24.0-44.0); MCHC 33.6 g/dL (28.0-37.0); MCV 80.2 fL (80.0-100.0); MONOCYTES 7.9 % (1.0-8.0); PLATELET COUNT 208 thou/uL (150-400); POLYS 63.3 % (36.0-66.0); RBC 4.05 mil/uL (4.20-5.00); WBC 8.5 thou/uL (4.0-11.0)
[2017-11-19 06:26] LABS: ALBUMIN 3.1 g/dL (3.4-5.0); CALCIUM 8.2 mg/dL (8.5-10.1); CREATININE 0.7 mg/dL (0.6-1.0); POTASSIUM 3.7 mmol/L (3.5-5.1); TOTAL BILIRUBIN 0.4 mg/dL (<0.1-1.0)
[2017-11-19 06:28] LABS: ALBUMIN 3.1 g/dL (3.4-5.0); DIRECT BILIRUBIN < 0.1 mg/dL (<0.1-0.3); LIPASE 73 U/L (73-393); SGOT 94 U/L (15-37); SGPT 223 U/L (30-65); TOTAL BILIRUBIN 0.3 mg/dL (<0.1-1.0)
[2017-11-19 08:45] VITALS: BP 92/58
[2017-11-19 19:00] VITALS: BP 113/80
[2017-11-20 03:12] VITALS: BP 86/58
[2017-11-20 06:10] LABS: HEMATOCRIT 31.4 % (37.0-47.0); HEMOGLOBIN 10.4 gm/dL (12.0-15.0); MCHC 33.2 g/dL (28.0-37.0); MCV 81.1 fL (80.0-100.0); RBC 3.87 mil/uL (4.20-5.00); RDW 14.9 % (10.5-14.5); WBC 7.3 thou/uL (4.0-11.0)
[2017-11-20 06:20] LABS: ALBUMIN 2.9 g/dL (3.4-5.0); DIRECT BILIRUBIN < 0.1 mg/dL (<0.1-0.3); LIPASE 111 U/L (73-393); SGOT 58 U/L (15-37); SGPT 159 U/L (30-65); TOTAL BILIRUBIN 0.1 mg/dL (<0.1-1.0); TOTAL PROTEIN 5.4 g/dL (6.4-8.2)
[2017-11-20 07:28] VITALS: BP 103/74
[2017-11-20 15:27] VITALS: BP 108/76
[2017-11-21 04:02] VITALS: BP 112/80
[2017-11-21 06:29] LABS: ALBUMIN 3.1 g/dL (3.4-5.0); DIRECT BILIRUBIN 0.1 mg/dL (<0.1-0.3); TOTAL BILIRUBIN 0.2 mg/dL (<0.1-1.0); TOTAL PROTEIN 5.6 g/dL (6.4-8.2)
[2017-11-21 08:52] VITALS: BP 110/73
[2017-11-21] MEDS ORDERED: OXYCODONE HCL10 MG PO (09:43)
[2017-11-21] MEDS ORDERED: GABAPENTIN 100100 MG PO (09:43)
[2017-11-21 11:24] VITALS: BP 110/73
[2017-11-21 11:33] VITALS: BP 110/73
[2017-11-21 15:06] LABS: HAV IgM AB (ANTI-HAV IgM) Positive (Negative); HEPATITIS B SURFACE AG Negative (Negative); HEPATITIS C VIRUS AB 8.6 (0.0-0.9)
[2017-11-22 13:07] LABS: MITOCHONDRIAL ANTIBODY 15.1 Units (0.0-20.0)
== END 2017-11-21 12:30 | disposition home or self-care (01) | DRG 439 ==
LOC: ER 03:36 → 4E 05:27 → EROBS 05:27 → 4E 06:04
PROVIDERS: Emergency Medicine; Family Medicine; Hospitalist; Specialist
DX: K85.90 Acute pancreatitis without necrosis or infection, unspecified (principal); K51.90 Ulcerative colitis, unspecified, without complications; E44.1 Mild protein-calorie malnutrition; K21.9 Gastro-esophageal reflux disease without esophagitis; F17.210 Nicotine dependence, cigarettes, uncomplicated; G89.29 Other chronic pain; Z90.49 Acquired absence of other specified parts of digestive tract; Z90.710 Acquired absence of both cervix and uterus; Z79.899 Other long term (current) drug therapy; Z88.6 Allergy status to analgesic agent; Z88.8 Allergy status to other drugs, medicaments and biological substances; Z88.0 Allergy status to penicillin; Z68.26 Body mass index [BMI] 26.0-26.9, adult
CPT/HCPCS: 10084

== ENCOUNTER 2017-12-26 12:10 | Emergency (ER) | payer OTHER ==
[~2017-12-26] VITALS: Ht 162.6 cm; Wt 54.4 kg
[~2017-12-26 12:10] MED LIST changes: +GABAPENTIN 100100 MG PO; +OXYCODONE HCL10 MG PO
[2017-12-26 12:28] LABS: URINE BILIRUBIN NEGATIVE (Negative); URINE BLOOD NEGATIVE (Negative); URINE CLARITY CLEAR; URINE COLOR YELLOW; URINE GLUCOSE-RANDOM* NEGATIVE (Negative); URINE KETONES NEGATIVE (Negative); URINE LEUKOCYTES NEGATIVE (Negative); URINE NITRITE NEGATIVE (Negative); URINE PROTEIN (DIPSTICK) NEGATIVE (Negative); URINE SPECIFIC GRAVITY <= 1.005 (1.005-1.035); URINE UROBILINOGEN 0.2 E.U./dl (0.2-1.0)
[2017-12-26 12:48] LABS: ABSOLUTE NEUTROPHILS 2.6 thou/uL (1.4-8.2); EOSINOPHILS 0.8 % (0.0-3.0); HEMATOCRIT 36.9 % (37.0-47.0); HEMOGLOBIN 12.2 gm/dL (12.0-15.0); LYMPHOCYTES 50.4 % (24.0-44.0); MCH 26.8 pg (26.0-34.0); MCHC 33.1 g/dL (28.0-37.0); MCV 81.1 fL (80.0-100.0); MONOCYTES 7.5 % (1.0-8.0); PLATELET COUNT 260 thou/uL (150-400); POLYS 40.3 % (36.0-66.0); RBC 4.54 mil/uL (4.20-5.00); RDW 15.3 % (10.5-14.5); WBC 6.5 thou/uL (4.0-11.0)
[2017-12-26 14:23] LABS: ANION GAP 11 mmol/L (7-16); BUN 8 mg/dL (7-18); CALCIUM 9.1 mg/dL (8.5-10.1); CHLORIDE 105 mmol/L (98-107); CO2 23 mmol/L (21-32); CREATININE 0.7 mg/dL (0.6-1.0); GLUCOSE 88 mg/dL (74-106); POTASSIUM 4.2 mmol/L (3.5-5.1); SODIUM 139 mmol/L (136-145)
[2017-12-26 14:30] LABS: ALBUMIN 3.9 g/dL (3.4-5.0); DIRECT BILIRUBIN < 0.1 mg/dL (<0.1-0.3); LIPASE 152 U/L (73-393); SGOT 23 U/L (15-37); SGPT 75 U/L (30-65); TOTAL BILIRUBIN 0.1 mg/dL (<0.1-1.0)
[2017-12-26] MEDS ORDERED: PROMS25 WY RECTAL (14:45)
[2017-12-26] MEDS ORDERED: ZOFRAN ODT4 MG PO (14:45)
[2017-12-26] MEDS ORDERED: PHENERGAN 25 MG25 M1 PO (14:45)
[2017-12-26] MEDS ORDERED: ACETAMINOPHEN-1 EAC1 PO (14:57)
[2017-12-26 15:05] VITALS: BP 122/76
== END 2017-12-26 17:27 | disposition home or self-care (01) ==
LOC: ER 12:10
PROVIDERS: Emergency Medicine
DX: K21.9 Gastro-esophageal reflux disease without esophagitis (principal); K50.90 Crohn's disease, unspecified, without complications; F17.210 Nicotine dependence, cigarettes, uncomplicated; Z90.49 Acquired absence of other specified parts of digestive tract; Z90.710 Acquired absence of both cervix and uterus; Z88.0 Allergy status to penicillin; Z88.8 Allergy status to other drugs, medicaments and biological substances

== ENCOUNTER 2017-12-26 18:47 | Inpatient (IN) | payer OTHER ==
[~2017-12-26] VITALS: Ht 167.6 cm; Wt 74.4 kg
[2017-12-26 18:47] VITALS: BP 142/107
[~2017-12-26 18:47] MED LIST changes: +ACETAMINOPHEN-1 EAC1 PO
[2017-12-26 19:34] LABS: ABSOLUTE NEUTROPHILS 4.2 thou/uL (1.4-8.2); BASOPHILS 0.8 % (0.0-2.0); EOSINOPHILS 0.7 % (0.0-3.0); HEMOGLOBIN 12.3 gm/dL (12.0-15.0); LYMPHOCYTES 41.4 % (24.0-44.0); MCH 26.7 pg (26.0-34.0); MCHC 33.3 g/dL (28.0-37.0); MCV 80.4 fL (80.0-100.0); MONOCYTES 7.3 % (1.0-8.0); PLATELET COUNT 200 thou/uL (150-400); POLYS 49.8 % (36.0-66.0); RBC 4.61 mil/uL (4.20-5.00); RDW 15.1 % (10.5-14.5); WBC 8.4 thou/uL (4.0-11.0)
[2017-12-26 19:42] LABS: CALCIUM 8.9 mg/dL (8.5-10.1); CREATININE 0.9 mg/dL (0.6-1.0); POTASSIUM 3.6 mmol/L (3.5-5.1)
[2017-12-26 19:48] LABS: ALBUMIN 4.1 g/dL (3.4-5.0); DIRECT BILIRUBIN 0.2 mg/dL (<0.1-0.3); TOTAL BILIRUBIN 0.4 mg/dL (<0.1-1.0); TOTAL PROTEIN 7.3 g/dL (6.4-8.2)
[2017-12-26 22:57] VITALS: BP 115/78
[2017-12-27 01:49] VITALS: BP 115/78
[2017-12-27 04:00] VITALS: BP 100/68
[2017-12-27 05:02] LABS: HEMATOCRIT 34.2 % (37.0-47.0); HEMOGLOBIN 11.3 gm/dL (12.0-15.0); MCH 26.8 pg (26.0-34.0); RBC 4.22 mil/uL (4.20-5.00); RDW 15.1 % (10.5-14.5); WBC 4.4 thou/uL (4.0-11.0)
[2017-12-27 05:10] LABS: ALBUMIN 3.5 g/dL (3.4-5.0); CALCIUM 7.9 mg/dL (8.5-10.1); CREATININE 0.7 mg/dL (0.6-1.0); POTASSIUM 3.4 mmol/L (3.5-5.1); TOTAL BILIRUBIN 0.3 mg/dL (<0.1-1.0); TOTAL PROTEIN 6.6 g/dL (6.4-8.2)
[2017-12-27 08:40] VITALS: BP 104/57
[2017-12-27 16:35] VITALS: BP 89/59
[2017-12-27 17:31] LABS: URINE BILIRUBIN NEGATIVE (Negative); URINE BLOOD NEGATIVE (Negative); URINE CLARITY CLEAR; URINE COLOR YELLOW; URINE GLUCOSE-RANDOM* NEGATIVE (Negative); URINE KETONES NEGATIVE (Negative); URINE LEUKOCYTES-REFLEX NEGATIVE (Negative); URINE NITRITE-REFLEX NEGATIVE (Negative); URINE PROTEIN (DIPSTICK) NEGATIVE (Negative); URINE SPECIFIC GRAVITY 1.025 (1.005-1.035); URINE UROBILINOGEN 0.2 E.U./dl (0.2-1.0)
[2017-12-27 20:00] VITALS: BP 95/52
[2017-12-28 03:45] VITALS: BP 106/59
[2017-12-28 05:49] LABS: ABSOLUTE NEUTROPHILS 3.6 thou/uL (1.4-8.2); BASOPHILS 0.2 % (0.0-2.0); EOSINOPHILS 0.1 % (0.0-3.0); HEMATOCRIT 36.1 % (37.0-47.0); HEMOGLOBIN 11.8 gm/dL (12.0-15.0); LYMPHOCYTES 24.2 % (24.0-44.0); MCH 26.6 pg (26.0-34.0); MCHC 32.6 g/dL (28.0-37.0); MCV 81.4 fL (80.0-100.0); MONOCYTES 7.5 % (1.0-8.0); PLATELET COUNT 155 thou/uL (150-400); RBC 4.44 mil/uL (4.20-5.00); RDW 15.2 % (10.5-14.5); WBC 5.2 thou/uL (4.0-11.0)
[2017-12-28 06:11] LABS: ALBUMIN 3.6 g/dL (3.4-5.0); CALCIUM 8.8 mg/dL (8.5-10.1); CREATININE 0.7 mg/dL (0.6-1.0); MAGNESIUM 2.1 mg/dL (1.8-2.4); POTASSIUM 3.7 mmol/L (3.5-5.1); TOTAL BILIRUBIN 0.4 mg/dL (<0.1-1.0); TOTAL PROTEIN 6.7 g/dL (6.4-8.2)
[2017-12-28 08:50] VITALS: BP 121/41
[2017-12-28] MEDS ORDERED: OXYCODONE HCL10 MG PO (11:56)
[2017-12-28 12:38] VITALS: BP 121/41
== END 2017-12-28 13:01 | disposition home or self-care (01) | DRG 391 ==
LOC: ER 18:47 → 4N 21:24 → EROBS 21:24 → 4N 22:28 → ENTRNSPT 12-28 12:55 → EDTRNSPTSTS 12-28 13:00 → 4N 12-28 13:01
PROVIDERS: Emergency Medicine; Internal Medicine; Nurse Practitioner Family
DX: R10.9 Unspecified abdominal pain (principal); E43 Unspecified severe protein-calorie malnutrition; K50.90 Crohn's disease, unspecified, without complications; K21.9 Gastro-esophageal reflux disease without esophagitis; R74.0 Nonspecific elevation of levels of transaminase and lactic acid dehydrogenase [LDH]; F41.9 Anxiety disorder, unspecified; F17.210 Nicotine dependence, cigarettes, uncomplicated; G89.29 Other chronic pain; G47.00 Insomnia, unspecified; Z90.710 Acquired absence of both cervix and uterus; Z80.8 Family history of malignant neoplasm of other organs or systems; Z80.6 Family history of leukemia; Z90.49 Acquired absence of other specified parts of digestive tract; Z79.899 Other long term (current) drug therapy; Z88.0 Allergy status to penicillin; Z88.6 Allergy status to analgesic agent; Z88.8 Allergy status to other drugs, medicaments and biological substances; Z68.26 Body mass index [BMI] 26.0-26.9, adult
CPT/HCPCS: 10091

== ENCOUNTER 2018-02-16 01:13 | Inpatient (IN) | payer OTHER ==
[~2018-02-16] VITALS: Ht 152.4 cm; Wt 61.2 kg
--- NOTE | ~2018-02-16 | EKG ---
[address] [place] [address] ELECTROCARDIOGRAM REPORT Name: LUZ CARROLL Room #: 417-I [facility].#: [id number] Admission: 02/16/18 Attend Phys: Zach Ochoa Discharge: Date of : 79 Report #: [id number] THIS REPORT FOR: //name// [facility] ED Test Date: 2018-02-16 Test Time: 02:25:23 Pat Name: LUZ CARROLL Department: Room: 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
[2018-02-16 01:15] VITALS: BP 104/70
[2018-02-16 02:31] LABS: ABSOLUTE NEUTROPHILS 5.3 thou/uL (1.4-8.2); BASOPHILS 0.5 % (0.0-2.0); EOSINOPHILS 0.4 % (0.0-3.0); HEMATOCRIT 38.6 % (37.0-47.0); HEMOGLOBIN 12.8 gm/dL (12.0-15.0); LYMPHOCYTES 35.9 % (24.0-44.0); MCH 26.5 pg (26.0-34.0); MCHC 33.2 g/dL (28.0-37.0); MCV 79.8 fL (80.0-100.0); MONOCYTES 7.6 % (1.0-8.0); PLATELET COUNT 193 thou/uL (150-400); POLYS 55.6 % (36.0-66.0); RBC 4.83 mil/uL (4.20-5.00); RDW 13.8 % (10.5-14.5); WBC 9.6 thou/uL (4.0-11.0)
[2018-02-16 02:39] LABS: ANION GAP 7 mmol/L (7-16); BUN 7 mg/dL (7-18); CALCIUM 8.7 mg/dL (8.5-10.1); CHLORIDE 103 mmol/L (98-107); CO2 27 mmol/L (21-32); CREATININE 0.9 mg/dL (0.6-1.0); GLUCOSE 101 mg/dL (74-106); POTASSIUM 3.4 mmol/L (3.5-5.1); SODIUM 137 mmol/L (136-145)
[2018-02-16 02:50] LABS: ALBUMIN 3.9 g/dL (3.4-5.0); MAGNESIUM 2.6 mg/dL (1.8-2.4); SGOT 167 U/L (15-37); SGPT 69 U/L (30-65); TOTAL BILIRUBIN 0.8 mg/dL (<0.1-1.0); TOTAL PROTEIN 7.4 g/dL (6.4-8.2); TROPONIN-I < 0.04 ng/mL (<0.06)
[2018-02-16 03:06] LABS: LIPASE 3074 U/L (73-393)
[2018-02-16 04:18] LABS: URINE BILIRUBIN NEGATIVE (Negative); URINE BLOOD NEGATIVE (Negative); URINE CLARITY CLEAR; URINE COLOR YELLOW; URINE GLUCOSE-RANDOM* NEGATIVE (Negative); URINE KETONES NEGATIVE (Negative); URINE LEUKOCYTES-REFLEX NEGATIVE (Negative); URINE NITRITE-REFLEX NEGATIVE (Negative); URINE PROTEIN (DIPSTICK) NEGATIVE (Negative); URINE SPECIFIC GRAVITY <= 1.005 (1.005-1.035); URINE UROBILINOGEN 0.2 E.U./dl (0.2-1.0)
[2018-02-16 04:54] VITALS: BP 105/76
[2018-02-16 05:00] VITALS: BP 124/83
[2018-02-16] MEDS ORDERED: CLONAZEPAM 1 MG1 M1 PO (06:07)
[2018-02-16] MEDS ORDERED: HYOSCYAMINE0.125 M1 SUBLING (06:10)
[2018-02-16] MEDS ORDERED: GI COCKTAIL PO (06:13)
[2018-02-16] MEDS ORDERED: PHENERGAN25 M1 RECTAL (06:16)
[2018-02-16 07:15] VITALS: BP 124/83
[2018-02-16 20:00] VITALS: BP 110/78
[2018-02-17 04:17] LABS: HEMATOCRIT 38.5 % (37.0-47.0); HEMOGLOBIN 12.5 gm/dL (12.0-15.0); MCH 26.2 pg (26.0-34.0); MCHC 32.6 g/dL (28.0-37.0); MCV 80.2 fL (80.0-100.0); RBC 4.8 mil/uL (4.20-5.00); RDW 14.6 % (10.5-14.5); WBC 6.9 thou/uL (4.0-11.0)
[2018-02-17 04:34] LABS: ALBUMIN 3.7 g/dL (3.4-5.0); CALCIUM 8.4 mg/dL (8.5-10.1); CREATININE 0.8 mg/dL (0.6-1.0); TOTAL BILIRUBIN 0.5 mg/dL (<0.1-1.0)
[2018-02-17 04:41] LABS: AMYLASE 77 U/L (25-115); LIPASE 110 U/L (73-393)
[2018-02-17 04:51] VITALS: BP 106/67
[2018-02-17 07:50] VITALS: BP 106/61
[2018-02-17 15:55] VITALS: BP 118/75
[2018-02-17 20:11] VITALS: BP 116/85
[2018-02-18 00:11] VITALS: BP 129/71
[2018-02-18 03:59] VITALS: BP 111/79
[2018-02-18 06:45] LABS: HEMATOCRIT 33.9 % (37.0-47.0); HEMOGLOBIN 11.3 gm/dL (12.0-15.0); MCH 26.7 pg (26.0-34.0); MCHC 33.1 g/dL (28.0-37.0); MCV 80.6 fL (80.0-100.0); RBC 4.21 mil/uL (4.20-5.00); RDW 14.2 % (10.5-14.5); WBC 5.1 thou/uL (4.0-11.0)
[2018-02-18 06:56] LABS: ALBUMIN 3.2 g/dL (3.4-5.0); DIRECT BILIRUBIN 0.1 mg/dL (<0.1-0.3); TOTAL BILIRUBIN 0.3 mg/dL (<0.1-1.0); TOTAL PROTEIN 5.8 g/dL (6.4-8.2)
[2018-02-18 07:25] VITALS: BP 123/63
[2018-02-18] MEDS ORDERED: PHENERGAN25 M1 RECTAL (10:08)
[2018-02-18] MEDS ORDERED: PERCOCET 10-321 EACH PO (10:08)
[2018-02-18] MEDS ORDERED: PANCREAZE DR 11 EAC2 PO (10:09)
[2018-02-18] MEDS ORDERED: URSO TAB 250 M250 MG PO (10:13)
[2018-02-18] MEDS ORDERED: ZOFRAN ODT4 MG PO (10:13)
[2018-02-18] MEDS ORDERED: ATIVAN0.5 MG PO (10:22)
[2018-02-18 12:07] VITALS: BP 123/63
[2018-02-18 12:53] VITALS: BP 123/63
== END 2018-02-18 13:02 | disposition home or self-care (01) | DRG 439 ==
LOC: ER 01:13 → 4E 03:53 → EROBS 03:53 → 4E 04:54
PROVIDERS: Emergency Medicine; Hospitalist; Nurse Practitioner Acute Care
DX: K85.90 Acute pancreatitis without necrosis or infection, unspecified (principal); K50.90 Crohn's disease, unspecified, without complications; G89.29 Other chronic pain; R10.9 Unspecified abdominal pain; F41.9 Anxiety disorder, unspecified; K21.9 Gastro-esophageal reflux disease without esophagitis; B19.20 Unspecified viral hepatitis C without hepatic coma; K86.1 Other chronic pancreatitis; E87.6 Hypokalemia; F12.90 Cannabis use, unspecified, uncomplicated; R74.0 Nonspecific elevation of levels of transaminase and lactic acid dehydrogenase [LDH]; F17.210 Nicotine dependence, cigarettes, uncomplicated; Z80.8 Family history of malignant neoplasm of other organs or systems; Z90.49 Acquired absence of other specified parts of digestive tract; Z90.710 Acquired absence of both cervix and uterus; Z88.0 Allergy status to penicillin; Z88.8 Allergy status to other drugs, medicaments and biological substances; Z79.899 Other long term (current) drug therapy; Z80.6 Family history of leukemia
CPT/HCPCS: 10084

== ENCOUNTER 2018-04-04 14:04 | Inpatient (IN) | payer OTHER ==
[~2018-04-04] VITALS: Ht 152.4 cm; Wt 59.0 kg
[~2018-04-04 14:04] MED LIST changes: +ATIVAN0.5 MG PO; +GI COCKTAIL PO; +HYOSCYAMINE0.125 M1 SUBLING; +PANCREAZE DR 11 EAC2 PO; +PERCOCET 10-321 EACH PO; +PHENERGAN25 M1 RECTAL; +URSO TAB 250 M250 MG PO
[2018-04-04 14:24] VITALS: BP 120/86
[2018-04-04 17:00] LABS: BASOPHILS 0.7 % (0.0-2.0); EOSINOPHILS 1.7 % (0.0-3.0); HEMATOCRIT 40.5 % (37.0-47.0); HEMOGLOBIN 13.6 gm/dL (12.0-15.0); LYMPHOCYTES 33.7 % (24.0-44.0); MCH 26.7 pg (26.0-34.0); MCHC 33.5 g/dL (28.0-37.0); MCV 79.8 fL (80.0-100.0); MONOCYTES 7.8 % (1.0-8.0); PLATELET COUNT 245 thou/uL (150-400); POLYS 56.1 % (36.0-66.0); RBC 5.08 mil/uL (4.20-5.00); RDW 15.3 % (10.5-14.5)
[2018-04-04 17:01] LABS: URINE BILIRUBIN NEGATIVE (Negative); URINE BLOOD NEGATIVE (Negative); URINE CLARITY CLEAR; URINE COLOR YELLOW; URINE GLUCOSE-RANDOM* NEGATIVE (Negative); URINE KETONES NEGATIVE (Negative); URINE LEUKOCYTES-REFLEX NEGATIVE (Negative); URINE NITRITE-REFLEX NEGATIVE (Negative); URINE PROTEIN (DIPSTICK) NEGATIVE (Negative); URINE SPECIFIC GRAVITY <= 1.005 (1.005-1.035); URINE UROBILINOGEN 0.2 E.U./dl (0.2-1.0)
[2018-04-04 17:18] LABS: CALCIUM 9.2 mg/dL (8.5-10.1); POTASSIUM 4.1 mmol/L (3.5-5.1)
[2018-04-04 17:23] LABS: ALBUMIN 4.5 g/dL (3.4-5.0); DIRECT BILIRUBIN 0.2 mg/dL (<0.1-0.3); TOTAL BILIRUBIN 0.5 mg/dL (<0.1-1.0); TOTAL PROTEIN 7.8 g/dL (6.4-8.2)
[2018-04-04 18:31] LABS: AMP/METHAMP Negative (Negative); BARBITURATES Negative (Negative); BENZODIAZEPINES POSITIVE (Negative); COCAINE Negative (Negative); METHADONE Negative (Negative); OPIATES Negative (Negative); PCP Negative (Negative)
[2018-04-04 19:26] VITALS: BP 104/64
[2018-04-04 19:54] VITALS: BP 109/71
[2018-04-04 21:00] VITALS: BP 113/74
[2018-04-05] VITALS: BP 112/77
[2018-04-05 04:00] VITALS: BP 104/64
[2018-04-05 06:43] LABS: ABSOLUTE NEUTROPHILS 4.1 thou/uL (1.4-8.2); BASOPHILS 0.7 % (0.0-2.0); EOSINOPHILS 2.2 % (0.0-3.0); HEMATOCRIT 38.3 % (37.0-47.0); HEMOGLOBIN 12.4 gm/dL (12.0-15.0); LYMPHOCYTES 36.5 % (24.0-44.0); MCH 26.3 pg (26.0-34.0); MCHC 32.3 g/dL (28.0-37.0); MCV 81.2 fL (80.0-100.0); MONOCYTES 7.8 % (1.0-8.0); PLATELET COUNT 224 thou/uL (150-400); POLYS 52.8 % (36.0-66.0); RBC 4.71 mil/uL (4.20-5.00); RDW 15.9 % (10.5-14.5); WBC 7.8 thou/uL (4.0-11.0)
[2018-04-05 07:00] LABS: CALCIUM 8.3 mg/dL (8.5-10.1); POTASSIUM 3.5 mmol/L (3.5-5.1); TOTAL BILIRUBIN 1.1 mg/dL (<0.1-1.0)
[2018-04-05 08:00] VITALS: BP 98/64
[2018-04-05 11:51] LABS: APTT 29.9 Seconds (24.5-32.8); PROTIME 10.5 Seconds (9.3-11.4)
[2018-04-05 21:05] VITALS: BP 115/57
[2018-04-06 05:14] VITALS: BP 92/44
[2018-04-06 05:59] LABS: ABSOLUTE NEUTROPHILS 2.2 thou/uL (1.4-8.2); BASOPHILS 0.6 % (0.0-2.0); EOSINOPHILS 3.7 % (0.0-3.0); HEMATOCRIT 37.1 % (37.0-47.0); LYMPHOCYTES 46.4 % (24.0-44.0); MCH 26.1 pg (26.0-34.0); MCHC 32.2 g/dL (28.0-37.0); MCV 81.2 fL (80.0-100.0); MONOCYTES 10.3 % (1.0-8.0); PLATELET COUNT 192 thou/uL (150-400); RBC 4.57 mil/uL (4.20-5.00); RDW 15.4 % (10.5-14.5); WBC 5.7 thou/uL (4.0-11.0)
[2018-04-06 06:12] LABS: ALBUMIN 3.5 g/dL (3.4-5.0); CALCIUM 8.8 mg/dL (8.5-10.1); CREATININE 0.8 mg/dL (0.6-1.0); TOTAL BILIRUBIN 0.4 mg/dL (<0.1-1.0); TOTAL PROTEIN 6.4 g/dL (6.4-8.2)
[2018-04-06 06:28] LABS: POTASSIUM 5.2 mmol/L (3.5-5.1)
[2018-04-06 08:00] VITALS: BP 103/69
[2018-04-06 11:11] VITALS: BP 103/69
[2018-04-06] MEDS ORDERED: URSODIOL300 MG PO (11:47)
[2018-04-06] MEDS ORDERED: PERCOCET 10-321 EACH PO (11:47)
[2018-04-06] MEDS ORDERED: PANCREAZE DR 11 EAC2 PO (11:47)
[2018-04-06] MEDS ORDERED: PANTOPRAZOLE SO40 M1 PO (11:47)
[2018-04-06] MEDS ORDERED: PROMS25 WY RECTAL (11:51)
== END 2018-04-06 12:10 | disposition home or self-care (01) | DRG 439 ==
LOC: ER 14:04 → EROBS 18:11 → 4N 18:11
PROVIDERS: Emergency Medicine; Family Medicine
DX: K85.90 Acute pancreatitis without necrosis or infection, unspecified (principal); K50.90 Crohn's disease, unspecified, without complications; F11.20 Opioid dependence, uncomplicated; K21.9 Gastro-esophageal reflux disease without esophagitis; F41.9 Anxiety disorder, unspecified; F17.210 Nicotine dependence, cigarettes, uncomplicated; R74.0 Nonspecific elevation of levels of transaminase and lactic acid dehydrogenase [LDH]; F12.90 Cannabis use, unspecified, uncomplicated; Z88.8 Allergy status to other drugs, medicaments and biological substances; Z88.0 Allergy status to penicillin; Z90.49 Acquired absence of other specified parts of digestive tract; Z90.710 Acquired absence of both cervix and uterus; Z80.8 Family history of malignant neoplasm of other organs or systems; Z80.6 Family history of leukemia; Z79.899 Other long term (current) drug therapy
CPT/HCPCS: 10091

== ENCOUNTER 2018-06-04 18:25 | Emergency (ER) | payer OTHER ==
[~2018-06-04] VITALS: Ht 152.4 cm; Wt 54.4 kg
--- NOTE | ~2018-06-04 | EKG ---
[address] [address] ELECTROCARDIOGRAM REPORT Name: LUZ CARROLL Room #: DEP [facility]#: [id number] Admission: 06/04/18 Attend Phys: Discharge: 06/04/18 Date of : 79 Report #: [id number] THIS REPORT FOR: //name// 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 : 1975 Requested By: Rachel Warner Order Number: [id number] MD: Mata Wooten Measurements Intervals [place] Rate: 100 P: 64 MS: 161 QRS: 53 QRSD: 96 T: 80 QT: 361 QTc: 466 Interpretive Statements Sinus tachycardia RSR' in V1 or V2, right VCD or RVH Compared to ECG 02/16/2018 02:25:23 Right ventricular hypertrophy now present Sinus rhythm no longer present Electronically Signed On 06-04-2018 22:09:44 CDT by Mata Wooten [email or web address] <ELECTRONICALLY SIGNED> By: Mata Wooten MD 06/04/18 2209 16 16 Mata Wooten MD /EPI
[~2018-06-04 18:25] MED LIST changes: +PANTOPRAZOLE SO40 M1 PO; +URSODIOL300 MG PO
[2018-06-04 20:12] LABS: ABSOLUTE NEUTROPHILS 3.6 thou/uL (1.4-8.2); BASOPHILS 0.7 % (0.0-2.0); EOSINOPHILS 0.7 % (0.0-3.0); HEMATOCRIT 39.1 % (37.0-47.0); HEMOGLOBIN 13.3 gm/dL (12.0-15.0); LYMPHOCYTES 38.8 % (24.0-44.0); MCH 27.4 pg (26.0-34.0); MCHC 34.1 g/dL (28.0-37.0); MCV 80.5 fL (80.0-100.0); MONOCYTES 6.2 % (1.0-8.0); PLATELET COUNT 205 thou/uL (150-400); POLYS 53.6 % (36.0-66.0); RBC 4.86 mil/uL (4.20-5.00); RDW 14.9 % (10.5-14.5); WBC 6.7 thou/uL (4.0-11.0)
[2018-06-04 20:17] LABS: ANION GAP 8 mmol/L (7-16); BUN 9 mg/dL (7-18); CALCIUM 9.6 mg/dL (8.5-10.1); CHLORIDE 102 mmol/L (98-107); CO2 27 mmol/L (21-32); CREATININE 0.9 mg/dL (0.6-1.0); GLUCOSE 95 mg/dL (74-106); SODIUM 137 mmol/L (136-145)
[2018-06-04 20:26] LABS: ALBUMIN 4.3 g/dL (3.4-5.0); LIPASE 193 U/L (73-393); SGOT 186 U/L (15-37); SGPT 153 U/L (30-65); TOTAL BILIRUBIN 0.3 mg/dL (<0.1-1.0); TROPONIN-I <0.06 ng/mL (<0.06)
[2018-06-04 20:35] LABS: URINE BILIRUBIN NEGATIVE (Negative); URINE BLOOD NEGATIVE (Negative); URINE CLARITY CLEAR; URINE COLOR YELLOW; URINE GLUCOSE-RANDOM* NEGATIVE (Negative); URINE KETONES NEGATIVE (Negative); URINE LEUKOCYTES-REFLEX NEGATIVE (Negative); URINE NITRITE-REFLEX NEGATIVE (Negative); URINE PROTEIN (DIPSTICK) NEGATIVE (Negative); URINE UROBILINOGEN 0.2 E.U./dl (0.2-1.0)
[2018-06-04] MEDS ORDERED: ONDANSETRON HCL4 M2 PO (21:31)
[2018-06-04] MEDS ORDERED: LIDOCAINE VISC100 ML PO (21:31)
[2018-06-04] MEDS ORDERED: BENTYL 20 MG TA20 M1 PO (21:31)
== END 2018-06-04 21:50 | disposition home or self-care (01) ==
LOC: ER 18:25
PROVIDERS: Nurse Practitioner Family
DX: R10.13 Epigastric pain (principal); R10.32 Left lower quadrant pain; G89.29 Other chronic pain; E86.0 Dehydration; R94.5 Abnormal results of liver function studies; R11.0 Nausea; R19.7 Diarrhea, unspecified; F17.210 Nicotine dependence, cigarettes, uncomplicated; F41.9 Anxiety disorder, unspecified; K21.9 Gastro-esophageal reflux disease without esophagitis; Z90.89 Acquired absence of other organs; Z90.710 Acquired absence of both cervix and uterus; Z90.49 Acquired absence of other specified parts of digestive tract; Z88.1 Allergy status to other antibiotic agents; Z88.0 Allergy status to penicillin; Z88.6 Allergy status to analgesic agent; Z88.8 Allergy status to other drugs, medicaments and biological substances

== ENCOUNTER 2019-01-14 16:03 | Emergency (ER) | payer OTHER ==
[~2019-01-14] VITALS: Ht 152.4 cm; Wt 49.9 kg
[~2019-01-14 16:03] MED LIST changes: +LIDOCAINE VISC100 ML PO
[2019-01-14] MEDS ORDERED: ATIVAN1 MG PO (16:49)
[2019-01-14 16:56] LABS: ABSOLUTE NEUTROPHILS 5.2 thou/uL (1.4-8.2); BASOPHILS 0.7 % (0.0-2.0); EOSINOPHILS 0.2 % (0.0-3.0); HEMATOCRIT 39.6 % (37.0-47.0); HEMOGLOBIN 13.3 gm/dL (12.0-15.0); LYMPHOCYTES 30.5 % (24.0-44.0); MCHC 33.5 g/dL (28.0-37.0); MCV 80.5 fL (80.0-100.0); PLATELET COUNT 209 thou/uL (150-400); POLYS 60.6 % (36.0-66.0); RBC 4.92 mil/uL (4.20-5.00); RDW 14.8 % (10.5-14.5); WBC 8.6 thou/uL (4.0-11.0)
[2019-01-14 16:57] LABS: URINE BILIRUBIN NEGATIVE (Negative); URINE BLOOD NEGATIVE (Negative); URINE CLARITY CLEAR; URINE COLOR YELLOW; URINE GLUCOSE-RANDOM* NEGATIVE (Negative); URINE KETONES NEGATIVE (Negative); URINE LEUKOCYTES-REFLEX NEGATIVE (Negative); URINE NITRITE-REFLEX NEGATIVE (Negative); URINE PROTEIN (DIPSTICK) NEGATIVE (Negative); URINE SPECIFIC GRAVITY <= 1.005 (1.005-1.035); URINE UROBILINOGEN 0.2 E.U./dl (0.2-1.0)
[2019-01-14 17:06] LABS: CALCIUM 9.6 mg/dL (8.5-10.1); CREATININE 0.8 mg/dL (0.6-1.0); POTASSIUM 3.7 mmol/L (3.5-5.1)
[2019-01-14 17:11] LABS: ALBUMIN 4.7 g/dL (3.4-5.0); TOTAL BILIRUBIN 0.3 mg/dL (<0.1-1.0); TOTAL PROTEIN 7.7 g/dL (6.4-8.2)
[2019-01-14 18:04] VITALS: BP 102/66
[2019-01-14] MEDS ORDERED: TRAMADOL 50 MG50 MG PO (19:14)
[2019-01-14] MEDS ORDERED: ONDANSETRON HCL4 M2 PO (19:14)
[2019-01-14] MEDS ORDERED: BENTYL 20 MG TA20 M1 PO (19:15)
== END 2019-01-14 19:33 | disposition home or self-care (01) ==
LOC: ER 16:03
PROVIDERS: Physician Assistant
DX: R10.11 Right upper quadrant pain (principal); G89.29 Other chronic pain; R11.2 Nausea with vomiting, unspecified; R10.13 Epigastric pain; F17.210 Nicotine dependence, cigarettes, uncomplicated; K50.90 Crohn's disease, unspecified, without complications; K21.9 Gastro-esophageal reflux disease without esophagitis; F41.9 Anxiety disorder, unspecified; Z88.8 Allergy status to other drugs, medicaments and biological substances; Z88.1 Allergy status to other antibiotic agents; Z88.0 Allergy status to penicillin; Z88.6 Allergy status to analgesic agent; Z90.49 Acquired absence of other specified parts of digestive tract; Z90.710 Acquired absence of both cervix and uterus; Z90.89 Acquired absence of other organs

== ENCOUNTER 2019-05-15 04:32 | Emergency (ER) | payer OTHER ==
[~2019-05-15] VITALS: Ht 162.6 cm; Wt 59.0 kg
[~2019-05-15 04:32] MED LIST changes: +ATIVAN1 MG PO
[2019-05-15] MEDS ORDERED: KLONOPIN0.5 MG PO (05:05)
[2019-05-15] MEDS ORDERED: PROTONIX40 M1 PO (05:06)
[2019-05-15] MEDS ORDERED: CARAFATE 1 GM TA1 G1 PO (05:10)
[2019-05-15 06:26] LABS: ABSOLUTE NEUTROPHILS 3.6 thou/uL (1.4-8.2); BASOPHILS 0.9 % (0.0-2.0); HEMATOCRIT 37.8 % (37.0-47.0); HEMOGLOBIN 12.7 gm/dL (12.0-15.0); LYMPHOCYTES 37.6 % (24.0-44.0); MCH 27.3 pg (26.0-34.0); MCHC 33.5 g/dL (28.0-37.0); MCV 81.6 fL (80.0-100.0); MONOCYTES 9.6 % (1.0-8.0); PLATELET COUNT 185 thou/uL (150-400); POLYS 50.9 % (36.0-66.0); RBC 4.64 mil/uL (4.20-5.00); RDW 13.5 % (10.5-14.5); WBC 7.1 thou/uL (4.0-11.0)
[2019-05-15 06:34] LABS: CALCIUM 8.8 mg/dL (8.5-10.1); CREATININE 0.8 mg/dL (0.6-1.0); POTASSIUM 3.7 mmol/L (3.5-5.1)
[2019-05-15] MEDS ORDERED: MOBIC15 MG PO (07:05)
[2019-05-15 07:22] VITALS: BP 110/71
[2019-05-15] MEDS ORDERED: CYCLOBENZAPRINE5 MG PO (07:23)
== END 2019-05-15 07:23 | disposition home or self-care (01) ==
LOC: ER 04:32
PROVIDERS: Emergency Medicine
DX: M25.562 Pain in left knee (principal); M54.2 Cervicalgia; M25.511 Pain in right shoulder; M54.9 Dorsalgia, unspecified; K50.90 Crohn's disease, unspecified, without complications; F41.9 Anxiety disorder, unspecified; K21.9 Gastro-esophageal reflux disease without esophagitis; F17.210 Nicotine dependence, cigarettes, uncomplicated; Z88.0 Allergy status to penicillin; Z88.6 Allergy status to analgesic agent; Z88.8 Allergy status to other drugs, medicaments and biological substances; Z90.49 Acquired absence of other specified parts of digestive tract; Z90.710 Acquired absence of both cervix and uterus; Z98.890 Other specified postprocedural states; Z86.14 Personal history of Methicillin resistant Staphylococcus aureus infection

== ENCOUNTER 2019-05-15 12:41 | Emergency (ER) | payer OTHER ==
[~2019-05-15] VITALS: Ht 162.6 cm; Wt 59.0 kg
[~2019-05-15 12:41] MED LIST changes: +CARAFATE 1 GM TA1 G1 PO; +CYCLOBENZAPRINE5 MG PO; +KLONOPIN0.5 MG PO; +MOBIC15 MG PO
[2019-05-15 13:21] VITALS: BP 114/75
[2019-05-15 14:03] LABS: AMP/METHAMP POSITIVE (Negative); BARBITURATES Negative (Negative); BENZODIAZEPINES POSITIVE (Negative); COCAINE Negative (Negative); METHADONE Negative (Negative); OPIATES Negative (Negative); PCP Negative (Negative)
== END 2019-05-15 14:22 | disposition home or self-care (01) ==
LOC: ER 12:41
PROVIDERS: Physician Assistant
DX: F41.9 Anxiety disorder, unspecified (principal); F19.10 Other psychoactive substance abuse, uncomplicated; K21.9 Gastro-esophageal reflux disease without esophagitis; K50.90 Crohn's disease, unspecified, without complications; Z90.49 Acquired absence of other specified parts of digestive tract; Z90.710 Acquired absence of both cervix and uterus; Z86.14 Personal history of Methicillin resistant Staphylococcus aureus infection; F17.210 Nicotine dependence, cigarettes, uncomplicated; Z88.0 Allergy status to penicillin; Z88.1 Allergy status to other antibiotic agents; Z88.5 Allergy status to narcotic agent; Z88.8 Allergy status to other drugs, medicaments and biological substances

== ENCOUNTER 2020-10-19 15:31 | Emergency (ER) | payer OTHER ==
[~2020-10-19] VITALS: Ht 152.4 cm; Wt 54.4 kg
[2020-10-19 15:53] LABS: ABSOLUTE NEUTROPHILS 2.6 thou/uL (1.4-8.2); BASOPHILS 0.8 % (0.0-2.0); EOSINOPHILS 1.5 % (0.0-3.0); HEMATOCRIT 36.1 % (37.0-47.0); LYMPHOCYTES 44.1 % (24.0-44.0); MCH 28.2 pg (26.0-34.0); MCHC 33.3 g/dL (28.0-37.0); MCV 84.7 fL (80.0-100.0); MONOCYTES 7.2 % (1.0-8.0); PLATELET COUNT 218 thou/uL (150-400); POLYS 46.4 % (36.0-66.0); RBC 4.26 mil/uL (4.20-5.00); WBC 5.6 thou/uL (4.0-11.0)
[2020-10-19 16:03] LABS: CALCIUM 8.9 mg/dL (8.5-10.1); CREATININE 0.9 mg/dL (0.6-1.0); POTASSIUM 3.9 mmol/L (3.5-5.1)
[2020-10-19 16:11] LABS: ALBUMIN 4.3 g/dL (3.4-5.0); TOTAL BILIRUBIN 0.1 mg/dL (0.2-1.0); TOTAL PROTEIN 7.2 g/dL (6.4-8.2)
[2020-10-19 17:14] LABS: URINE BILIRUBIN NEGATIVE (Negative); URINE BLOOD NEGATIVE (Negative); URINE CLARITY CLEAR; URINE COLOR YELLOW; URINE GLUCOSE-RANDOM* NEGATIVE (Negative); URINE KETONES NEGATIVE (Negative); URINE LEUKOCYTES-REFLEX NEGATIVE (Negative); URINE NITRITE-REFLEX NEGATIVE (Negative); URINE PROTEIN (DIPSTICK) NEGATIVE (Negative); URINE SPECIFIC GRAVITY <= 1.005 (1.005-1.035); URINE UROBILINOGEN 0.2 E.U./dl (0.2-1.0)
[2020-10-19 21:10] VITALS: BP 105/61
[2020-10-19] MEDS ORDERED: NORFLEX100 MG PO (21:13)
== END 2020-10-19 21:11 | disposition home or self-care (01) ==
LOC: ER 15:31
PROVIDERS: Emergency Medicine; Physician Assistant
DX: M54.5 Low back pain (principal); K21.9 Gastro-esophageal reflux disease without esophagitis; F17.210 Nicotine dependence, cigarettes, uncomplicated; Z90.49 Acquired absence of other specified parts of digestive tract; Z90.710 Acquired absence of both cervix and uterus; Z90.89 Acquired absence of other organs; Z79.899 Other long term (current) drug therapy; Z88.0 Allergy status to penicillin; Z88.1 Allergy status to other antibiotic agents; Z88.8 Allergy status to other drugs, medicaments and biological substances